=== PATIENT | female | born 1995 | race Caucasian/White ===

== ENCOUNTER 2018-04-18 19:29 | Emergency (ER) | payer BC, OTHER ==
[~2018-04-18] VITALS: Ht 167.6 cm; Wt 77.5 kg
[2018-04-18 19:31] VITALS: BP 121/91
[2018-04-18] MEDS ORDERED: ipratropium/albuterol 3ml nebule NEB ONE (19:40)
[2018-04-18] MEDS ORDERED: predniSONE 20 mg tablet PO ONE (19:45)
[2018-04-18] MEDS ORDERED: LORazepam 1 MG tablet PO ONE (19:45)
[2018-04-18] MEDS ORDERED: PRED20TA PO (20:53)
--- NOTE | 2018-04-19 09:36 | NUR ---
Patient called regarding Dr. Gómez stating that he would prescribe patient a refill on her inhaler. Spoke with Dr. Avina who stated that we could call in a prescription for her. She takes a Ventolin IH 1-2 puffs Q4H PRN SOB. Tae on cypress and dwight joel was called for prescription per patients request.
== END 2018-04-18 21:07 | disposition home or self-care (01) ==
LOC: ER 19:29
DX: F41.9 Anxiety disorder, unspecified (principal); J45.909 Unspecified asthma, uncomplicated; Z88.8 Allergy status to other drugs, medicaments and biological substances; Z79.899 Other long term (current) drug therapy
CPT/HCPCS: 93005; 94640; 94760; 99283; J7512; 99284